=== PATIENT | male | born 1965 | race Caucasian/White ===

== ENCOUNTER 2020-05-03 11:42 | Emergency (ER) | payer BC, SELFPAY ==
[2020-05-03 11:44] VITALS: BP 124/50; PULSE 61; RESP 20; TEMP 36.6; O2SAT 100; BMI 22.6
--- NOTE | 2020-05-03 12:14 | HMH.EDDENT ---
ED Disposition Clinical Impression: Infected dental caries Disposition: Home, Self-Care Condition on Discharge: Good Instructions: DI for Dental Pain Prescriptions: Hydrocod/Acet 5/325 mg [[place] 5/325mg tablet] 1 tab PO Q6HP PRN #7 tab PRN Reason: Toothache Prescription Printed Amoxicillin/Potassium Clav [Amox-Clav 875-125 mg Tablet] 1 tab PO BID #14 tab Prescription Printed Referrals: PCP,No [Primary Care Provider] - Emergency dental clinic at [facility] [Other] - Critical Care Critical Care Time: No Attestation: On 05/03/20, the high probability of a clinically significant, sudden or life threatening deterioration of the following system(s) required my full and direct attention, intervention and personal management. The time I documented below is in addition to time spent performing reported procedures but includes the following listed in this critical care notation. Medical Decision Making - Medical Records Medical records reviewed: Yes: I reviewed the patient's medical records. - Ronak Inquiry Pt receiving controlled substance: No Vital Signs: 05/03/20 11:44 Temperature 97.9 F Temperature Source Oral Pulse Rate [Left Radial] 61 Respiratory Rate 20 Blood Pressure [Right Arm] 124/50 L Blood Pressure Mean [Right Arm] 74 Blood Pressure Source [Right Arm] Automatic Cuff Blood Pressure Position [Right Arm] Sitting 02 Sat by Pulse Oximetry 100 Oxygen Delivery Method Room Air Orders (Tests/Meds): ED MEDICATIONS Discontinued Medications Generic Name Dose Route Start Last Admin Trade Name Freq PRN Reason Stop Dose Admin Ketorolac Tromethamine 30 mg 05/03/20 12:01 Toradol 30mg/Ml Vial IM 05/03/20 12:02 ONCE ONE Medical Decision Narrative: 55-year-old male presenting to the emergency department with a fracture dental caries. It does appear to be infected. I did explain to the patient that he needs dental follow-up for tooth extraction. There is no evidence of extension up into the maxilla, TMJ or ocular involvement. Patient be discharged on analgesics and antibiotic. Given strict return precautions. Verbalized understanding. Dental HPI - General Chief complaint: Dental/Oral Stated complaint: gums infected swollen under left eye, numbness Time Seen by Provider: 05/03/20 11:50 Mode of Arrival: Ambulatory Limitations: No Limitations Description of Symptoms (Recalled from ER Triage Doc. by RN): c/o left gum pain that is swelling and going up his left face swelling. - History of Present Illness HPI Narrative: 55-year-old male presented to the emergency department with dental pain in his left upper jaw. Patient states that he has had a history of cavities. He does not see a dentist. He states that he cracked his tooth a couple weeks ago. Pain is been worsening from that area. He has had some blood and pus discharge. States that is extending up into his mid face. Denies any fevers or chills. No difficulty swallowing. No change in voice. No neck pain. Denies any abdominal pain or vomiting. No chest pain or shortness of breath. No headache, no change in vision, no focal weakness. - Related Data Previous Rx's Medication Instructions Recorded Amoxicillin/Potassium Clav 1 tab PO BID #14 tab 05/03/20 [Amox-Clav 875-125 mg Tablet] Hydrocod/Acet 5/325 mg [[place] 1 tab PO Q6HP PRN #7 tab 05/03/20 5/325mg tablet] [facility] History - Hepatitis A Screen Drug use history?: No High risk sexual behaviors?: No History of sexually transmitted infection?: No Currently employed?: No Childcare worker?: No Do you have indoor plumbing?: Yes Do you have electricity?: Yes Attestation statement:: This patient has been screened for Hepatitis A risk factors. I have reviewed the patient's past medical history: Yes - Social History Smoking Status: Current every day smoker # Packs/Day (cigarettes): 1 Alcohol Intake: never Occupational
[2020-05-03 12:17] VITALS: BP 133/63; PULSE 55; RESP 16; O2SAT 99
[2020-05-03 12:38] VITALS: BP 124/62; PULSE 62; RESP 19; TEMP 36.7; O2SAT 98
== END 2020-05-03 12:39 | disposition home or self-care (01) ==
PROVIDERS: Emergency Provider Emergency Medicine
DX: K02.9 Dental caries, unspecified (principal); F17.210 Nicotine dependence, cigarettes, uncomplicated
CPT/HCPCS: 96372; 99282

== ENCOUNTER 2022-04-17 13:28 | Emergency (ER) | payer BC, SELFPAY ==
[2022-04-17] VITALS (9 sets, daily range): BP systolic 122–138; BP diastolic 70–81; PULSE 69–78; RESP 16–18; TEMP 36.7; O2SAT 98–100; BMI 21.2
--- NOTE | 2022-04-17 13:33 | ECG_ITS ---
APPROVED REPORT Exam: Resting ECG HR:84 bpm ECG Measurements Heart Rate 84 AXES WA 129 P 73 QRSd 90 QRS 72 QT 355 T 78 QTc 396 Conclusion SINUS RHYTHM NORMAL ECG UNCONFIRMED REPORT Electronically signed by : Savage Lopez MD 04/18/2022 21:26:56
--- NOTE | 2022-04-17 13:38 | XR_ITS ---
FINAL REPORT TECHNIQUE: Chest PA & Lateral CLINICAL HISTORY: chest pain FINDINGS: Two views of the chest were performed. The heart size is normal. The mediastinum is within normal limits. There is no acute cardiopulmonary process. There are no pleural effusions. There is no pneumothorax. The bony thorax appears intact. IMPRESSION: No acute cardiopulmonary process. Reviewed, Interpreted and Dictated by Lucas Myers MD Transcribed by Elisha Saul Authenticated and [facility]
[2022-04-17 13:57] LABS: Lipase 70 U/L (23-300)
[2022-04-17 13:58] LABS: Anion Gap 9.8 mEq/L (5-15); Blood Urea Nitrogen 18 mg/dl (9-20); Calcium 8.8 mg/dl (8.4-10.2); Carbon Dioxide 28 mmol/L (22.0-30.0); Chloride 102 mmol/L (98-107); Creatinine Clearance Estimated 89 mL/min (50-200); Estimated Glomerular Filt Rate 99 ml/min (>60); GFR (African American) 120 ML/MIN (>60); Glucose 84 mg/dl (74-100); Potassium 3.8 mmoL/L (3.5-5.1); Sodium 136 mmol/L (136-145)
[2022-04-17 14:07] LABS: Basophils # 0.2 K/mm3 (0-0.2); Basophils % 1.4 % (0.1-2.0); Eosinophils # 0.2 K/mm3 (0.0-0.4); Eosinophils % 1.8 % (0.1-12.0); Hematocrit 42.6 % (42.0-52.0); Hemoglobin 13.6 g/dL (14.1-18.0); Lymphocytes # 4.5 K/mm3 (0.7-4.5); Lymphocytes % 37.4 % (10-50); Mean Corpuscular HGB Conc 31.8 g/dL (31.8-35.4); Mean Corpuscular Hemoglobin 29.2 pg (27.0-31.2); Mean Corpuscular Volume 91.8 fl (80-94); Monocytes # 0.6 K/mm3 (0.1-1.0); Monocytes % 5.3 % (1.7-9.3); Neutrophils # 6.6 K/mm3 (1.8-7.8); Neutrophils % 54.2 % (37.0-80.0); Platelet Count 347 K/mm3 (142-424); Red Blood Count 4.64 M/mm3 (4.60-6.20); Red Cell Distribution Width 13.6 % (11.5-17.5); White Blood Count 12.1 K/mm3 (4.8-10.8)
[2022-04-17 14:10] LABS: Troponin I < 0.01 ng/ml (0.00-0.034)
--- NOTE | 2022-04-17 14:56 | PC.NURSE ---
covid swab sent to lab; pt resting on ed stretcher with no other needs at this time
[2022-04-17 15:06] LABS: Coronavirus 19, PCR Not Detected (NotDetected); Influenza A, PCR Not Detected (NotDetected); Influenza B, PCR Not Detected (NotDetected)
--- NOTE | 2022-04-17 17:40 | PC.NURSE ---
rounded on pt at this time, pt states no needs at this time
--- NOTE | 2022-04-17 17:51 | PC.NURSE ---
ZARI DEE at at this time
--- NOTE | 2022-04-17 17:52 | HMH.EDABDPAI ---
ED Disposition Clinical Impression: Gastric ulcer Disposition: Home, Self-Care Condition on Discharge: Good Instructions: Peptic Ulcer, Acute Abdominal Pain Prescriptions: Lansoprazole [Prevacid] 30 mg PO BID #30 cap Lansoprazole [Prevacid] 30 mg PO DAILY #30 cap Transmission Status: Received by [facility] Lansoprazole [Prevacid 24Hr] 15 mg PO DAILY #30 cap Referrals: Dinorah Mejia APRN [Primary Care Provider] - Forms: Work/School Release - Critical Care Critical Care Time: No Attestation: On 04/17/22, the high probability of a clinically significant, sudden or life threatening deterioration of the following system(s) required my full and direct attention, intervention and personal management. The time I documented below is in addition to time spent performing reported procedures but includes the following listed in this critical care notation. Medical Decision Making - Ronak Inquiry Pt receiving controlled substance: No Vital Signs: 04/17/22 13:29 04/17/22 14:30 04/17/22 15:30 Temperature 98.1 F Temperature Source Oral Pulse Rate 77 69 Pulse Rate [Right Radial] 78 Respiratory Rate 18 Blood Pressure 136/76 138/72 Blood Pressure [Right Arm] 127/77 Blood Pressure Mean 93 87 Blood Pressure Mean [Right Arm] 93 Blood Pressure Source [Right Arm] Automatic Cuff Blood Pressure Position [Right Arm] Sitting 02 Sat by Pulse Oximetry 98 99 99 Oxygen Delivery Method Room Air 04/17/22 16:00 04/17/22 16:30 04/17/22 17:00 Temperature Temperature Source Pulse Rate 69 72 75 Pulse Rate [Right Radial] Respiratory Rate Blood Pressure 133/76 122/73 127/75 Blood Pressure [Right Arm] Blood Pressure Mean 94 89 90 Blood Pressure Mean [Right Arm] Blood Pressure Source [Right Arm] Blood Pressure Position [Right Arm] 02 Sat by Pulse Oximetry 100 99 98 Oxygen Delivery Method 04/17/22 17:30 04/17/22 18:00 Temperature Temperature Source Pulse Rate 71 73 Pulse Rate [Right Radial] Respiratory Rate Blood Pressure 124/70 131/81 Blood Pressure [Right Arm] Blood Pressure Mean 82 91 Blood Pressure Mean [Right Arm] Blood Pressure Source [Right Arm] Blood Pressure Position [Right Arm] 02 Sat by Pulse Oximetry 100 98 Oxygen Delivery Method Room Air - Lab Data Lab results reviewed: Yes: I reviewed the patient's lab results. Lab Results 04/17/22 13:34: WBC 12.1 H, RBC 4.64, Hgb 13.6 L, Hct 42.6, MCV 91.8, MCH 29.2, MCHC 31.8, RDW 13.6, Plt Count 347, MPV 8.0, Neut % (Auto) 54.2, Lymph % (Auto) 37.4, Tripp % (Auto) 5.3, Eos % (Auto) 1.8, Baso % (Auto) 1.4, Neut # (Auto) 6.6, Lymph # (Auto) 4.5, Tripp # (Auto) 0.6, Eos # (Auto) 0.2, Baso # (Auto) 0.2 04/17/22 13:34: Sodium 136, Potassium 3.8, Chloride 102, Carbon Dioxide 28, Anion Gap 9.8, BUN 18, Creatinine 0.80, Estimated Creat Clear 89, Estimated GFR 99, Est GFR ( Amer) 120, Glucose 84, Calcium 8.8, Troponin I < 0.01 04/17/22 13:34: Lipase 70 04/17/22 14:55: SARS-CoV-2 (PCR) Not detected, Influenza A Untype (PCR) Not detected, Influenza Type B (PCR) Not detected 04/17/22 18:07: Troponin I < 0.01 Result diagrams: 04/17/22 13:34 04/17/22 13:34 Orders (Tests/Meds): ED MEDICATIONS Generic Name Dose Route Start Last Admin Trade Name Freq PRN Reason Stop Dose Admin Sodium Chloride 10 ml 04/17/22 13:39 Sodium Chloride 0.9% 10ml Flush Syringe IV 05/17/22 13:38 NEEDED PRN Maintain IV Site Sodium Chloride 10 ml 04/17/22 17:52 Sodium Chloride 0.9% 10ml Vial IV 05/17/22 17:51 NEEDED PRN dilute protonix Discontinued Medications Generic Name Dose Route Start Last Admin Trade Name Freq PRN Reason Stop Dose Admin Iopamidol 75 ml 04/17/22 18:28 04/17/22 18:29 Iopamidol-370 (76%);100ml Bottle IV 04/17/22 18:29 75 ml ONCE ONE Administration Pantoprazole Sodium 40 mg 04/17/22 17:52 Pantoprazole 40mg Vial IV 04/17/22 17:53 ONCE
--- NOTE | 2022-04-17 18:01 | CT_ITS ---
PROCEDURE INFORMATION: Exam: CT Abdomen And Pelvis With Contrast Exam date and time: 04/17/2022 6:13 PM Age: 57 years old Clinical indication: Abdominal pain; Generalized; Additional info: Abd pain TECHNIQUE: Imaging protocol: Computed tomography of the abdomen and pelvis with contrast. Radiation optimization: All CT scans at this facility use at least one of these dose optimization techniques: automated exposure control; mA and/or kV adjustment per patient size (includes targeted exams where dose is matched to clinical indication); or iterative reconstruction. Contrast material: ISOVUE; Contrast volume: 75 ml; Contrast route: IV; COMPARISON: CR XR CHEST 2V 04/17/2022 1:52 PM FINDINGS: Liver: Mild fatty infiltration of the liver along the falciform ligament. Low attenuation hepatic lesions measuring up to 7 mm in diameter are incompletely characterized, but are likely cysts. No followup imaging is recommended. Gallbladder and bile ducts: Normal. No calcified stones. No ductal dilation. Pancreas: Normal. No ductal dilation. Spleen: Normal. No splenomegaly. Adrenal glands: Normal. No mass. Kidneys and ureters: Low attenuation renal lesions measuring up to 14 mm in diameter are incompletely characterized, but are likely cysts. No followup imaging is warranted. Stomach and bowel: Nonspecific bowel wall thickening of the stomach with surrounding mesenteric edema. There is a possible 6 mm gastric ulcer in the lesser curvature on image 17 series 1001. Bowel wall thickening and distention of multiple segments of small bowel could be reactive. Appendix: No evidence of appendicitis. Intraperitoneal space: See Stomach and bowel finding. Vasculature: The arteries demonstrate moderate atherosclerotic disease. Lymph nodes: Unremarkable. No enlarged lymph nodes. Urinary bladder: Urinary bladder wall thickening is nonspecific. Reproductive: [id number] prostate enlargement. Bones/joints: Unremarkable. No acute fracture. Soft tissues: Unremarkable. Other findings: Stigmata of old granulomatous disease. IMPRESSION: 1. Nonspecific bowel wall thickening of the stomach with surrounding mesenteric edema. There is a possible 6 mm gastric ulcer in the lesser curvature on image 17 series 1001. No free air. 2. Bowel wall thickening and distention of multiple segments of small bowel could be reactive. Enteritis could produce a similar appearance in the appropriate clinical setting. 3. Urinary bladder wall thickening is nonspecific. Please exclude infection. COMMENTS: Consistent with the [employer]'s Incidental Findings Committee white paper (J Am Rodrigue Radiol 2018): Any incidental renal lesion less than 1 cm or classified as too small to characterize, or any incidental cystic renal lesion characterized as simple-appearing, is likely benign. No follow-up imaging is recommended for these lesions per consensus recommendations based on imaging criteria.
--- NOTE | 2022-04-17 18:13 | PC.NURSE ---
pt to radiology via stretcher with pharmacy order entry technician
--- NOTE | 2022-04-17 18:35 | PC.NURSE ---
Pt and family updated about poc and results via [facility]
[2022-04-17 19:14] LABS: Troponin I < 0.01 ng/ml (0.00-0.034)
[2022-04-17 20:20] LABS: Troponin I < 0.01 ng/ml (0.00-0.034)
== END 2022-04-17 20:20 | disposition home or self-care (01) ==
PROVIDERS: Emergency Provider Emergency Medicine; PCP Nurse Practitioner Family
DX: K25.9 Gastric ulcer, unspecified as acute or chronic, without hemorrhage or perforation (principal); R07.9 Chest pain, unspecified; F17.210 Nicotine dependence, cigarettes, uncomplicated; Z20.822 Contact with and (suspected) exposure to COVID-19
CPT/HCPCS: 36415; 71046; 74177; 80048; 83690; 84484; 85025; 93005; 96374; 99285; C9803; Q9967; U0003; U0005